=== PATIENT | female | born 1945 | race Caucasian/White ===

== ENCOUNTER 2019-08-10 15:21 | Emergency (ER) | payer MEDICARE ==
[2019-08-10] MEDS ORDERED: NS 0.9% 1000 ML** 1,000 ML IV ONE (15:46)
[2019-08-10] MEDS ORDERED: Diltiazem IV push/loading dose 5 MG/ML 5 ML vial (25 mg) IV SLOW PU ONE ×2 (15:46→17:48)
--- NOTE | 2019-08-10 15:48 | ED ---
HPI Chest Pain - HPI Summary HPI Summary: 74 year old F presenting to [facility] with a chief complaint of chest tightness and dizziness since earlier today. The patient rates the pain 0/10 in severity. Symptoms aggravated by movement. Symptoms alleviated by nothing. Patient reports that she has had similar symptoms in the past for which she has taken propanolol. She follows w Dr. Hernandez. She denies hx afib w RVR. She denies any chest pain. She took Propranolol one hour ago. Medication list reviewed. Allergy list reviewed. - History of Current Complaint Chief Complaint: EDDysrhythmPalp Time Seen by Provider: 08/10/19 15:32 Hx Obtained From: Patient Onset/Duration: Still Present Current Severity: None Pain Intensity: 0 Pain Scale Used: 0-10 Numeric Character: Tightness Aggravating Factor(s): Movement Alleviating Factor(s): Nothing Associated Signs and Symptoms: Positive: Dizziness. Negative: Chest Pain - Allergy/Home Medications Allergies/Adverse Reactions: Allergies Allergy/AdvReac Type Severity Reaction Status Date / Time meperidine [From Demerol] Allergy Hallucinati Verified 08/10/19 15:27 ons Home Medications: Home Medications ALPRAZolam TAB* [Xanax TAB*] 0.25 mg PO TID PRN 08/10/19 [History Confirmed ] Albuterol HFA INHALER* [Ventolin HFA Inhaler*] 2 puff INH Q4H PRN 08/10/19 [ History Confirmed 08/10/19] Apixaban* [Eliquis*] 5 mg PO BID 30 Days #60 tab 08/10/19 [Rx] Azithromycin TAB* [Zithromax TAB (Z-EM) 250 mg #6 tabs] 2 tab PO .TODAY, THEN 1 DAILY 08/10/19 [History Confirmed 08/10/19] Codeine TAB* [Codeine Tab*] 30 mg PO TID PRN 08/10/19 [History Confirmed ] Estradiol TAB(NF) 2 mg PO DAILY 08/10/19 [History Confirmed 08/10/19] Metoprolol Tartrate TAB* [Lopressor TAB*] 25 mg PO BID 30 Days #60 tab 08/10/19 [Rx] Montelukast Sodium TAB* [Singulair TAB*] 10 mg PO DAILY 08/10/19 [History Confirmed 08/10/19] Potassium Chlor TAB* [Klor Con ER TAB*] 10 meq PO BID 08/10/19 [History Confirmed 08/10/19] acetaZOLAMIDE TAB* [Diamox TAB*] 375 mg PO DAILY 08/10/19 [History Confirmed ] PMH/Surg Hx/FS Hx/Imm Hx Respiratory History: Reports: Hx Asthma EENT History: Denies: Hx Deafness - Surgical History Surgical History: Yes Surgery Procedure, Year, and Place: Cholecystectomy Infectious Disease History: No Infectious Disease History: Denies: Traveled Outside the [place] in Last 30 Days - Family History Known Family History: Negative: Hypertension - Social History Alcohol Use: None Hx Substance Use: No Substance Use Type: Reports: None Hx Tobacco Use: No Smoking Status (MU): Never Smoked Tobacco Review of Systems Positive: Other - Chest tightness. Negative: Chest Pain Neurological/Mental Status: Other - Dizziness All Other Systems Reviewed And Are Negative: Yes Physical Exam - Summary Physical Exam Summary: Constitutional: Well-developed, Well-nourished, Alert. (-) Distressed Skin: Warm, Dry HENT: Normocephalic; Atraumatic Eyes: Conjunctiva normal Neck: Musculoskeletal ROM normal neck. (-) JVD, (-) Stridor, (-) Nuchal rigidity Cardio: Tachycardic, irregularly irregular, Intact distal pulses; Radial pulses are 2+ and symmetric. (-) Murmur Pulmonary/Chest wall: Effort normal. (-) Respiratory distress, (-) Wheezes, (-) Rales Abd: Soft, (-) tenderness, (-) Distension, (-) Guarding, (-) Rebound Musculoskeletal: 1+ edema to the lower extremities. Lymph: (-) Cervical adenopathy Neuro: Alert, Oriented x3 Psych: Mood and affect Normal Triage Information Reviewed: Yes Vital Signs On Initial Exam: Initial Vitals Temp Pulse Resp BP Pulse Ox 98.1 F 135 16 134/100 96 08/10/19 15:23 08/10/19 15:23 08/10/19 15:23 08/10/19 15:23 08/10/19 15:23 Vital Signs Reviewed: Yes Procedures - Sedation Patient Received Moderate/Deep Sedation with Procedure: No Diagnostics - Vital Signs Vital Signs Temp Pulse Resp BP Pulse Ox 08/10/19 15:23 98.1 F 135 16 134/100 96 - Laboratory Result Diagrams: 08/10/19 15:55 08/10/19 15:55 Lab Statement: Any lab studies that have been ordered have been reviewed, and results considered in the medical decision making process. - EKG 15:44 Cardiac Rate: Tachycardia - 150 BPM Summary of EKG Findings: An EKG at 15:44 reveals atrial fibrillation with RVR, rate of 150 BPM. ED physician has reviewed and interpreted this EKG. Re-Evaluation - Re-Evaluation First Eval Re-Evaluation Time: 16:40 Change: Improved - HR 120s given second dose metoprolol, Mg repleted Chest Pain Course/Dx - Course Course Of Treatment: 74 y/o F w hx palpitations p/w afib w RVR. - VS notable for HR around 140's. Check electrolytes, will give metoprolol. - regarding chest tightness, patient reports happens when she has fast HR. Has taken propanolol in past. - Mg repleted, K repleted. - trop neg, EKG afib w RVR. Given metoprolol 5 IV x2, Dilt 10 mg x1, PO metoprolol 25 mg which helped improve HR to 80-s to low 100's. Patient does not want to stay, given eliquis dose here, will send home on eliquis (CHADsVASC2 score 2) and metoprolol 25 BID - Diagnoses Provider Diagnoses: Hypokalemia, Hypomagnesemia, Atrial fibrillation with RVR - Critical Care Time Critical Care Time: 30-74 min - Upon my evaluation, this patient had a high probability of imminent or life-threatening deterioration due to afib w RVR which required my direct attention, intervention, and personal management. I have personally provided 35 minutes of critical care time exclusive of time spent on separately billable procedures. Time includes review of laboratory data , radiology results, discussion with consultants, and monitoring for potential decompensation. Interventions were performed as documented above. Critical Care Statement: Critical care time is provided exclusive of any time spent performing procedures. Discharge ED - Sign-Out/Discharge Documenting (check all that apply): Patient Departure - Discharge Plan Condition: Stable Disposition: HOME Prescriptions: Apixaban* [Eliquis*] 5 mg PO BID 30 Days #60 tab Metoprolol Tartrate TAB* [Lopressor TAB*] 25 mg PO BID 30 Days #60 tab Patient Education Materials: A-fib (Atrial Fibrillation) (ED) Referrals: Jonatan Pena MD [Primary Care Provider] - Additional Instructions: You were seen in the emergency department for a rapid heart rate. Please take metoprolol twice a day as well as eliquis (a blood thinners) twice a day. If any studies were not completed at the time of discharge you will be called with the relevant results. Follow up with Dr. Prakash Please follow up with your primary care doctor in next 2-3 days and return to emergency department for palpitations, chest pain, or concerning symptoms. It was a pleasure taking care of you today. - Billing Disposition and Condition Condition: STABLE Disposition: Home - Attestation Statements Document Initiated by Agustina: Yes Documenting Scribe: Mary Guajardo Provider For Whom Agustina is Documenting (Include Credential): Mariah Cordova MD Scribe Attestation: I, Mary Guajardo, scribed for aMriah Cordova MD on 08/10/19 at 1948. Scribe Documentation Reviewed: Yes Provider Attestation: The documentation as recorded by the Mary rodney accurately reflects the service I personally performed and the decisions made by me, Mariah Cordova MD Status of Scribe Document: Viewed
[2019-08-10] MEDS ORDERED: Metoprolol Tartrate IV* 1 MG/ML 5 ML VIAL IV ONE ×2 (16:03→16:23)
[2019-08-10 16:08] LABS: ABS Eosinophils 0.3 10^3/ul (0-0.6); ABS Lymphocytes 1.7 10^3/ul (1.0-4.8); ABS Monocytes 0.4 10^3/ul (0-0.8); ABS Neutrophils 6.2 10^3/ul (1.5-7.7); Eosinophil % 3.6 %; Hematocrit 42 % (35-47); Hemoglobin 13.9 g/dL (12.0-16.0); Lymphocyte % 19.4 %; Mean Corpuscular HGB Conc 33 g/dL (31-36); Mean Corpuscular Hemoglobin 28 pg (27-31); Mean Corpuscular Volume 83 fL (80-97); Mean Platelet Volume 9.2 fL (7.4-10.4); Platelet Count 197 10^3/uL (150-450); Red Blood Count 5.03 10^6 /uL (3.70-4.87); Red Cell Distribution Width 16 % (10-15); White Blood Count 8.7 10^3/uL (3.5-10.8)
[2019-08-10] MEDS ORDERED: Magnesium Sulfate 1 GM IV* 1 GM/100 ML BAG IV ONE (16:29)
[2019-08-10 16:32] LABS: Albumin 3.9 g/dL (3.2-5.2); Albumin/Globulin Ratio 1.6 (1-3); BUN/Creatinine Ratio 23.4 (8-20); EGFR African American 88.9 (>60); EGFR Non-African American 73.5 (>60); Globulin 2.5 g/dL (2-4); Magnesium 1.5 mg/dL (1.9-2.7); Potassium 3.5 mmol/L (3.5-5.0); Total Bilirubin 0.7 mg/dL (0.2-1.0); Total Protein 6.4 g/dL (6.4-8.9)
[2019-08-10] MEDS ORDERED: Magnesium Sulfate IV* 3 GM in NS 0.9% 100 ML* 100 ML IVPB ONE (16:33)
[2019-08-10] MEDS ORDERED: Magnesium Sulf 4 GM/100 ML IV* 4,000 MG/100 ML BAG IVPB ONE (16:34)
[2019-08-10] MEDS ORDERED: Potassium Chlor TAB* 20 MEQ TAB.ER PO ONE (16:43)
[2019-08-10] MEDS ORDERED: Metoprolol Tartrate TAB* 25 MG PO ONE ×2 (17:12→19:08)
[2019-08-10 17:15] LABS: TSH (Thyroid Stimulating Horm) 1.49 mcIU/mL (0.34-5.60)
[2019-08-10] MEDS ORDERED: Apixaban* 5 MG TAB PO ONE (19:08)
[2019-08-10 19:54] VITALS: BP 116/80
== END 2019-08-10 19:51 | disposition home or self-care (01) ==
LOC: ED 15:21
DX: E87.6 Hypokalemia (principal); E83.42 Hypomagnesemia; I48.20 Chronic atrial fibrillation, unspecified; R42 Dizziness and giddiness; R07.9 Chest pain, unspecified; Z79.01 Long term (current) use of anticoagulants; Z79.899 Other long term (current) drug therapy; Z79.890 Hormone replacement therapy; Z88.8 Allergy status to other drugs, medicaments and biological substances
CPT/HCPCS: 36415; 80053; 83735; 83880; 84443; 85025; 93005; 96365; 96375; 96376; 99284; A9270-GY; J3475; J3490